=== PATIENT | male | born 1990 | race Caucasian/White ===

== ENCOUNTER 2024-12-01 19:27 | Emergency (ER) | payer BC, SELFPAY ==
[2024-12-01 19:38] VITALS: BP 158/79
[2024-12-01] MEDS: TYLENOL 1000 MG PO (19:52)
[2024-12-01 20:02] LABS: % Basophils 0.1 % (0-2); % Immature Granulocytes 0.3 % (0-0.5); % Lymphocytes 4.3 % (20.5-51.1); % Monocytes 4.8 % (1.7-9.3); % Neutrophils 90.5 % (42.2-75.2); Absolute Lymphocytes 0.6 10^3/uL (1.2-3.4); Absolute Monocytes 0.7 10^3/uL (0.1-0.6); Absolute Neutrophils 12.3 10^3/uL (1.4-6.5); Hematocrit 41.1 % (39.0-52.0); Mean Corp Hgb Conc. 36.5 g/dL (33.0-37.0); Mean Corpuscular Hgb 31.1 pg (27.0-31.0); Mean Corpuscular Volume 85.3 fL (80.0-94.0); Mean Platelet Volume 10.6 fL (7.4-10.4); Nucleated Red Blood Cells % 0 % (-); Platelet Count 211 10^3/uL (130-400); Red Blood Cell Count 4.82 10^6/uL (4.70-6.10); Red Cell Dist. Width 12.2 % (11.5-14.5); White Blood Cell Count 13.6 10^3/uL (4.8-10.8)
[2024-12-01 20:24] LABS: COVID-19 Antigen Negative (Negative)
[2024-12-01 20:27] LABS: ALT (SGPT) 25 U/L (0-50); AST (SGOT) 21 U/L (17-59); Albumin 4.7 g/dl (3.5-5.0); Alkaline Phosphatase 58 U/L (38-126); Blood Urea Nitrogen 11 mg/dl (9-20); Calcium 10.2 mg/dl (8.4-10.2); Carbon Dioxide 22 mmol/L (22-30); Chloride 107 mmol/L (98-107); Glucose 113 mg/dl (70-99); Potassium 4.2 mmol/L (3.5-5.1); Sodium 139 mmol/L (135-145); Total Bilirubin 1.1 mg/dl (0.2-1.3); Total Protein 7.9 g/dl (6.3-8.2); eGFR > 60.00
[2024-12-01 21:09] LABS: Creatine Phosphokinase 163 U/L (55-170)
[2024-12-01 21:20] LABS: Troponin I < 0.012 ng/ml
[2024-12-01] MEDS: NSS 1000 IV ×2 (21:49→23:21)
[2024-12-01 21:50] VITALS: BP 120/61
[2024-12-01 21:52] VITALS: BMI 26.9
[2024-12-01 22:00] VITALS: BP 129/63
[2024-12-01 23:00] VITALS: BP 146/76
[2024-12-01] MEDS: TORADOL 15 MG IV (23:19)
--- NOTE | 2024-12-01 23:58 | ED.GENMED ---
Addendum entered and electronically signed by LEENA Lopez 12/05/24 10:14:
PT with positive Campylobacter. Did speak with patient at home he is still having intermittent low-grade fevers and diarrhea but feeling better. He does have a GI appointment on Sunday. Will send a prescription for Zithromax 500 mg for 3 days
over to the pharmacy . he will hold off to see if symptoms go away within the week. He is a healthy male with no immune issues. Culture results faxed to PCP.
Original Note:
History of Present Illness
General
Chief Complaint: Hyper/Hypo Thermia Problem
Source: patient
Time Seen by Provider: 12/01/24 21:10
History of Present Illness
History of Present Illness:
34-year-old male presents to the emergency room complaining complaining about possible heatstroke. Patient began having bodyaches, fever, nausea and 'cold skin' around 11 AM. 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
working with horses during the day. He believes he was drinking plenty of fluids. Patient began having some loose stool this afternoon as well.
Phy Exam
Physical Exam
Physical Exam:
General: Awake, Alert, Oriented X3. No acute distress.
Vitals: Febrile, tachycardic
Head: Atraumatic
Eyes: Pupils equal, EOMI
Throat: Airway intact, no exudates
Neck: Trachea midline
Lungs: Clear and equal b/l
Heart: Regular rate, no murmurs
Abd: Soft, tenderness palpation lower abdomen,, No pulsatile mass
Neuro: Nonfocal
Skin: Warm, dry, no rash
Extremities: pulses equal b/l, no edema
Course
Orders/Labs/Results
Orders:
Orders
12/01/24 19:47
Acetaminophen [Tylenol] 1,000 mg .ROUTE .STK-MED ONE
12/01/24 19:52
Acetaminophen [Tylenol] 1,000 mg PO NOW STA
12/01/24 19:53
CMP [Comprehensive Metabolic Panel] Urgent
Complete Blood Count/With Diff Urgent
12/01/24 19:55
COVID-19 Antigen Urgent
Source: Nasal Swab
Influenza A+B Rapid Molecular Urgent
LAMBERTO Source: Nasal Swab
Specimen Description:
12/01/24 20:17
Electrocardiogram (*1) Urgent
Reason for Study: Chest Pain
EKG- Treatment ONCE
12/01/24 20:32
Creatine [Creatine Phosphokinase] Urgent
Troponin I Urgent
12/01/24 21:31
0.9% Sodium Chloride 1000 ml [Nss] 1,000 ml IV BOLUS
12/01/24 23:16
CT Abd/pelvis W Iv Cont Urgent
Comment:
Reason For Exam: abd pain, fever
0.9% Sodium Chloride 1000 ml [Nss] 1,000 ml IV BOLUS
Ketorolac [Toradol] 15 mg IV NOW STA
Abnormal Lab Results
12/01/24
19:53
WBC 13.6 H 10^3/uL
(4.8-10.8)
MCH 31.1 H pg
(27.0-31.0)
MPV 10.6 H fL
(7.4-10.4)
Absolute Neuts (auto) 12.3 H 10^3/uL
(1.4-6.5)
Absolute Lymphs (auto) 0.6 L 10^3/uL
(1.2-3.4)
Absolute Monos (auto) 0.7 H 10^3/uL
(0.1-0.6)
Neutrophils % 90.5 H %
(42.2-75.2)
Lymphocytes % 4.3 L %
(20.5-51.1)
Glucose 113 H mg/dl
(70-99)
12/01/24 19:53
12/01/24 19:53
Vital Signs
Initial and Last Documented VS:
Initial Vital Signs
Temp Pulse BP Pulse Ox
102.0 F H 105 158/79 98
12/01/24 19:38 12/01/24 19:38 12/01/24 19:38 12/01/24 19:38
Last Documented Vital Signs
Temp Pulse BP Pulse Ox
101.6 F H 105 146/76 97
12/01/24 23:23 12/01/24 19:38 12/01/24 23:00 12/01/24 23:15
MDM/Problems Addressed
Differential Diagnosis Includes:
Heat exhaustion, febrile from viral illness, heatstroke,
MDM/Problems Addressed:
Patient presented with exhaustion, body aches, feeling overheated while working outside on a hot day. Patient initially treated with Tylenol, IV fluids. Labs show an elevated white blood count of 13,000. Chemistries are unremarkable. After
hydration with IV fluid the patient actually is feeling worse. He is having more significant abdominal pain, chills and has had diarrhea. I would have expected the patient to have had no increased temperature and be feeling much better should this
have been a heat illness. Clearly the patient suffering more from an infectious or inflammatory process causing fever. Given his abdominal discomfort and diarrhea CT of the abdomen pelvis was obtained. This shows inflammatory changes of the
distal ileum and colon which are mild but present. Radiologist from [facility] feels he has either infectious or an inflammatory process. Patient has no known history of inflammatory bowel disease. On another repeat evaluation the patient is now
feeling much better. Symptoms resolved with Toradol and more IV fluid. Will send a stool culture. Patient does not desire hospitalization. 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
his symptoms. We will initiate antibiotic should his stool culture grow something that requires it. Patient understands to return if he is having significant bloody diarrhea, abdominal pain unable to tolerate liquids or just feeling worse.
*Radiology
Radiology exam reviewed: radiology read reviewed (Vision report)
*Pulse Oximetry
SaO2: 97
Oxygen Mode of Delivery: Room air
Patient hypoxic: no
*Critical Care Note
Total Time (30-74mins, 75-104mins- exclusive of procedures): Not Applicable
ED Attending Note
-
Portions of this chart may have been created with voice recognition software.� Occasional wrong word or��sound alike� substitutions may have occurred due to the inherent limitations of voice recognition software.
Discharge Plan
Departure
Patient Disposition: Home (Routine Discharge)
Date of Disposition: 12/02/24
Time of Disposition: 00:03
Patient with high blood pressure during this ER visit?: No
Condition: Fair
Discharge Problem:
Colitis, Diarrhea, Fever
Instructions: Diarrhea and Traveler's Diarrhea, Adult (DC)
Referrals:
Maryuri Reece MD [Active, Gastroenterology]
Akbar Chris DO [Family Provider]
Activity Restrictions/Additional Instructions:
I believe you were feeling poorly today because of a infectious process involving your colon. We will notify you if your stool culture grows a bacteria that requires treatment. Given your work on a farm I think antibiotics could cause more harm
than good and therefore we will hold them pending the results of your stool culture. Return to the emergency room if develop bloody stool, severe abdominal pain or feel like you are getting worse in any way. Certainly return if you are unable to
keep down any fluids from nausea and vomiting.
Interventions
Interventions:
*Risk Screen - Suicide Last Done: 12/01/24 21:53
*General Assessment Last Done: 12/01/24 21:53
*ED- Fall Risk Assessment Last Done: 12/01/24 21:53
*ED COVID-19 Vaccine History Last Done: 12/01/24 21:53
ED- Cardiac Assessment Last Done: 12/01/24 21:53
ED- Neurological Assessment Last Done: 12/01/24 21:53
ED- Pulmonary Assessment Last Done: 12/01/24 21:53
ED-Skin Assessment Last Done: 12/01/24 21:53
Discharge Date and Time
Print Language: [place]
[2024-12-02] VITALS: BP 119/66
== END 2024-12-02 00:50 | disposition home or self-care (01) ==
LOC: EMR 19:27
PROVIDERS: Emergency Medicine; EMERGENCY PHYSICIAN Emergency Medicine; FAMILY PHYSICIAN Family Medicine
DX: K52.9 Noninfective gastroenteritis and colitis, unspecified (principal); T67.5XXA Heat exhaustion, unspecified, initial encounter; X58.XXXA Exposure to other specified factors, initial encounter; Z11.52 Encounter for screening for COVID-19
CPT/HCPCS: 96374; 96361; 99284; 74177; 80053; 82550; 84484; 85025; 87045; 87046; 87324; 87427; 87449; 87502; 87811; 93005; Q9967